=== PATIENT | male | born 1955 | race Caucasian/White ===

== ENCOUNTER 2017-02-11 12:11 | Emergency (ER) | payer OTHER ==
[2017-02-11 12:53] LABS: URINE APPEARANCE CLEAR; URINE BILIRUBIN NEGATIVE (NEG); URINE BLOOD SMALL (NEG); URINE COLOR YELLOW; URINE GLUCOSE (UA) NEGATIVE (NEG); URINE KETONE NEGATIVE (NEG); URINE LEUKOCYTE ESTERASE NEGATIVE (NEG); URINE NITRITE NEGATIVE (NEG); URINE PROTEIN NEGATIVE (NEG); URINE SPECIFIC GRAVITY 1.005 (1.003-1.030)
[2017-02-11 12:54] LABS: URINE EPITHELIAL CELLS RARE /[HPF] (0-10); URINE RBC 0-2 /[HPF] (0-5); URINE WBC RARE /[HPF] (0-5)
[2017-02-11] MEDS ORDERED: OMEPRAZOLE20 M3 PO (13:24)
[2017-02-11] MEDS ORDERED: ZOCOR20 M1 PO (13:27)
[2017-02-11] MEDS ORDERED: VALSARTAN-HCTZ1 EA12 PO (13:27)
[2017-02-11 15:03] LABS: BASO % 0.1 % (0-2); EOS % 0.1 % (0-7); HCT-HEMATOCRIT 40.2 % (36.0-53.5); HGB-HEMOGLOBIN 14.2 gm/dl (13.5-17.0); IMMATURE GRANULOCYTES ABSOLUTE 0.02 tho/cmm (0-0.03); IMMATURE GRANULOCYTES PERCENT 0.2 % (0-0.3); LYMPH % 3.4 % (20-45); LYMPH ABSOLUTE COUNT 0.4 tho/cmm (0.8-4.5); MCH (MEAN CORPUSCULAR HGB) 30.7 pg (28.0-32.0); MCHC MEAN CORPUSCULAR HGB CONC 35.3 % (32.0-36.0); MCV (MEAN CELL VOLUME) 86.8 fl (82.0-96.0); MONO % 6.6 % (0-12); MONOCYTE ABSOLUTE COUNT 0.8 tho/cmm (0.0-1.2); NEUTROPHIL ABSOLUTE COUNT 11.2 tho/cmm (1.6-8.0); NEUTROPHIL-AUTOMATED 11.2 tho/cmm (1.6-8.0); NEUTROPHILS % 89.6 % (40-80); PLATELET COUNT 159 tho/cmm (150-450); RED BLOOD COUNT 4.63 mil/cmm (4.40-5.70); RED CELL DISTRIBUTION WIDTH 12.6 % (12.4-16.4); WHITE BLOOD COUNT 12.5 tho/cmm (4.0-10.0)
[2017-02-11 15:20] LABS: ALKALINE PHOSPHATASE 94 U/L (33-138); ALT/SGPT 38 U/L (12-78); ANION GAP 10 mmol/L (0-20); AST/SGOT 18 U/L (10-40); BLOOD UREA NITROGEN 14 mg/dl (6-24); C-REACTIVE PROTEIN 13.3 mg/dl (0-0.9); CALCIUM 9.3 mg/dl (8.5-10.5); CARBON DIOXIDE-VENOUS 29 mmol/L (22-32); CHLORIDE 106 mmol/l (96-110); CREATININE 1.37 mg/dl (0.60-1.30); GLUCOSE 101 mg/dL (70-110); POTASSIUM 4.3 mmol/L (3.7-5.1); SODIUM 141 mmol/L (135-145); eGFR VALUE FOR BLACK 63 mL/Min
[2017-02-11] MEDS ORDERED: FLAGYL500 M1 PO (16:38)
[2017-02-11] MEDS ORDERED: NORCO 5-325 TA1 EACH PO (16:38)
[2017-02-11] MEDS ORDERED: ZOFRAN ODT4 MG PO (16:38)
[2017-02-11] MEDS ORDERED: CIPROFLOXACIN500 M3 PO (16:38)
== END 2017-02-11 17:22 ==
LOC: EDMED 12:11
PROVIDERS: Emergency Medicine; Nurse Practitioner Family
DX: K57.92 Diverticulitis of intestine, part unspecified, without perforation or abscess without bleeding (principal); I10 Essential (primary) hypertension; K21.9 Gastro-esophageal reflux disease without esophagitis; Z79.899 Other long term (current) drug therapy
CPT/HCPCS: J2270; J7030; Q9967